=== PATIENT | male | born 1945 | race Caucasian/White ===

== ENCOUNTER 2021-02-27 10:50 | Outpatient (CLI) | payer MEDICARE ==
[2021-02-27 21:58] LABS: SARS-CoV-2 PCR by NAA Not Detected (NotDetected)
== END 2021-02-27 10:51 | disposition home or self-care (01) ==
LOC: CSHLAB 10:50
PROVIDERS: ATTEND Internal Medicine Pulmonary Disease
DX: Z20.822 Contact with and (suspected) exposure to COVID-19 (principal)
CPT/HCPCS: U0003; U0005

== ENCOUNTER 2021-03-13 10:49 | Outpatient (CLI) | payer MEDICARE ==
[2021-03-14 11:50] LABS: SARS-CoV-2 PCR by NAA Not Detected (NotDetected)
== END 2021-03-13 10:50 | disposition home or self-care (01) ==
LOC: CSHLAB 10:49
PROVIDERS: ATTEND Internal Medicine Pulmonary Disease
DX: Z20.822 Contact with and (suspected) exposure to COVID-19 (principal); R06.02 Shortness of breath
CPT/HCPCS: U0003; U0005

== ENCOUNTER 2021-03-16 10:08 | Outpatient (CLI) | payer MEDICARE | END 2021-03-16 10:09 | disposition home or self-care (01) | LOC: CSHCP 10:08 | PROVIDERS: ATTEND Internal Medicine Pulmonary Disease | DX: R06.02 Shortness of breath (principal); J44.9 Chronic obstructive pulmonary disease, unspecified | CPT/HCPCS: 94060; 94726; 94729; 94760 ==